=== PATIENT | female | born 1960 | race Caucasian/White ===

== ENCOUNTER 2016-09-12 16:17 | Emergency (ER) | payer OTHER | END 2016-09-12 18:41 | disposition home or self-care (01) | DX: J06.9 Acute upper respiratory infection, unspecified (principal); B97.89 Other viral agents as the cause of diseases classified elsewhere; E11.9 Type 2 diabetes mellitus without complications; Z79.84 Long term (current) use of oral hypoglycemic drugs ==

== ENCOUNTER 2016-10-11 09:29 | Outpatient (CLI) | payer OTHER ==
[2016-10-11] MEDS ORDERED: IOTHALAMATE MEGLUMINE 50 ML VIAL IVP SCH (10:00)
[2016-10-11] MEDS ORDERED: BUFFERED LIDOCAINE 10 ML SYRINGE IU ONE ×2 (14:38→16:00)
[2016-10-11] MEDS ORDERED: methylPREDNISolone ACETATE 40 MG/ML VIAL IM ONE (14:38)
== END 2016-10-11 09:30 | disposition home or self-care (01) ==
DX: M25.511 Pain in right shoulder (principal)
CPT/HCPCS: 20610; 77002; J1030; Q9961

== ENCOUNTER 2016-11-13 08:55 | Outpatient (CLI) | payer OTHER ==
--- NOTE | 2016-11-13 11:16 | MRI Report ---
EXAM: LEFT KNEE MRI WITHOUT CONTRAST EXAM DATE: 11/13/2016 09:00 AM. CLINICAL HISTORY: PAIN IN LEFT KNEE. COMPARISON: None. TECHNIQUE: Multiplanar, multisequence T1-weighted and fluid-sensitive sequences of the knee without c ontrast. Other: None. FINDINGS: Bones: No fractures or subluxations. Tricompartmental osteoarthritis with small osteophytes, mild jux ta-articular reactive marrow edema in the lateral patella and lateral trochlear. No bone lesions. Articular Cartilage: Grade 3-4 cartilaginous degeneration with severe thinning or small area of denud ation in the lateral patella and lateral trochlear associated with joint space narrowing, grade 2 to 3 degeneration in the medial patellofemoral joint. Medial Meniscus: The medial meniscus is intact. Lateral Meniscus: The lateral meniscus is intact. Cruciate Ligaments: The anterior and posterior cruciate ligaments are intact. Collateral Ligaments: Mild grade 1 sprain of the medial collateral ligament with mild surrounding chantal ma. The posterior oblique and the lateral collateral ligaments are intact. Tendons: The quadriceps, patellar, semimembranosus, and popliteus tendons are unremarkable. Musculature: No edema or fatty atrophy. Other: No significant effusion. No popliteal cyst. No loose bodies. The medial and lateral retinacul a, patellofemoral ligaments and iliotibial band are intact. The subcutaneous tissues and fat pads are unremarkable. No bursitis. IMPRESSION: 1. Tricompartmental osteoarthritis with small osteophytes, mild juxta-articular reactive marrow edema in the lateral patella and lateral trochlear. No fracture. 2. Grade 3-4 cartilaginous degeneration with severe thinning or small area of denudation in the later al patella and lateral trochlear associated with joint space narrowing, grade 2 to 3 degeneration in the medial patellofemoral joint. 3. Mild grade 1 sprain of the medial collateral ligament. 4. Menisci are intact. 5. Cruciate ligaments are intact. [facility] MUSCULOSKELETAL RADIOLOGY SECTION Referring Provider Line: [phone] SITE ID: [id number]
== END 2016-11-13 08:56 | disposition home or self-care (01) ==
LOC: DI 08:55
PROVIDERS: ATTEND Physician Assistant
DX: M17.12 Unilateral primary osteoarthritis, left knee (principal); S83.412A Sprain of medial collateral ligament of left knee, initial encounter

== ENCOUNTER 2020-03-10 09:28 | Outpatient (CLI) | payer OTHER ==
--- NOTE | 2020-03-10 14:36 | MRI Report ---
PROCEDURE: Hip RT W/O INDICATIONS: PAIN IN RT HIP TECHNIQUE: Noncontrast coronal T1 spin echo and STIR through the bony pelvis. Coronal and axial T2 fast spin ec ho with fat saturation, sagittal T1 spin echo, and oblique axial T2 fast spin echo with fat saturatio n through the hip. COMPARISON: None. FINDINGS: Image quality: Excellent. Bones and joints: There is no marrow edema. Mild left worse than right bilateral hip joint osteoarthr itic changes are seen with joint space narrowing and subchondral sclerosis. No intraosseous lesions o r fractures. No avascular necrosis of the femoral heads. The visualized lower lumbar spine appears normally aligned. Tendons: The gluteus medius and minimus tendinosis at their insertion on greater trochanter is seen, without associated muscle atrophy. The iliopsoas tendon appears intact, without adjacent bursal flu id collections. The origin of the hamstring tendon is intact at the ischial tuberosity. Labrum and cartilage: The acetabular labrum appears intact in the absence of intra-articular contras t. The alpha angle of the femur is within normal limits at less than 55 degrees. Soft tissues: Visualized muscles demonstrate normal bulk and internal signal. The proximal sciatic neurovascular bundle appears normal adjacent to the hamstring tendons. No free pelvic fluid. Bladde r wall thickness is normal. Genitourinary structures and bowel loops appear normal where visualized. IMPRESSION: 1. Mild left worse than right bilateral hip joint osteoarthritis. No marrow edema. No fracture or dis location. No evidence of avascular necrosis. 2. Mild the left gluteus medius and minimus tendinosis at their insertion on greater trochanter. No o ther muscle or tendon signal abnormality. 3. No gross focal labral tear is seen in the absence of intra-articular contrast. Reviewed by: Gui Arnold MD on 03/10/2020 2:35 PM PDT Approved by: Gui Arnold MD on 03/10/2020 2:35 PM PDT Station ID: [id number]
== END 2020-03-10 09:29 | disposition home or self-care (01) ==
LOC: DI 09:28
PROVIDERS: ATTEND Family Medicine
DX: M16.0 Bilateral primary osteoarthritis of hip (principal)

== ENCOUNTER 2020-03-17 17:10 | Emergency (ER) | payer OTHER ==
[2020-03-17] MEDS ORDERED: TETANUS/DIPHTHERIA/PERTUSSIS 0.5 ML SYRINGE IM ONE (18:34)
--- NOTE | 2020-03-17 18:37 | ED Physician Documentation ---
History of Present Illness - Stated complaint Stated Complaint: CHICKEN SCRATCHED RT SIDE FACE - Chief complaint Chief Complaint: Laceration - History obtained from History obtained from: Patient - Additonal information Additional information: Patient presents to the emergency department stating that she needs to have a tetanus shot after getting scratched by her chicken. Patient states that she was working on the cage when the chicken suddenly became spooked and began flying around the cage. She states the chickens talons had chicken feces on them and that they made contact with her face, causing scratches. Patient states that her main concern is that she is not up-to-date on tetanus and wants to get updated today. No other complaints at this time. No other injuries. Patient states she washed her wounds at home. Review of Systems Ten Systems: 10 systems reviewed and negative Constitutional: reports: Reviewed and negative Eyes: reports: Reviewed and negative Ears: reports: Reviewed and negative Nose: reports: Reviewed and negative Throat: reports: Reviewed and negative Cardiac: reports: Reviewed and negative Respiratory: reports: Reviewed and negative GI: reports: Reviewed and negative : reports: Reviewed and negative Skin: reports: Reviewed and negative Musculoskeletal: reports: Reviewed and negative Neurologic: reports: Reviewed and negative Psychiatric: reports: Reviewed and negative Endocrine: reports: Reviewed and negative Immunocompromised: reports: Reviewed and negative PD PAST MEDICAL HISTORY - Past Medical History Cardiovascular: High cholesterol Respiratory: None Endocrine/Autoimmune: Type 2 diabetes GI: None : None HEENT: None Psych: None Musculoskeletal: Other Derm: None - Past Surgical History General: Appendectomy 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 - Present Medications Home Medications: Ambulatory Orders Medication Instructions Recorded Confirmed Atorvastatin [Lipitor] 10 mg PO DAILY 11/29/14 12/08/14 Butalb/Acetaminophen/Caffeine 1 tab PO PRN 11/29/14 12/08/14 [Fioricet 50-300-40 mg Capsule] Metformin HCl [Metformin HCl ER] 500 mg PO QPM 11/29/14 12/08/14 Rizatriptan Benzoate [Maxalt] 10 mg PO PRN 11/29/14 12/08/14 Topiramate [Topiragen] 100 mg PO BID 11/29/14 12/08/14 methocarbamoL [Robaxin] 500 mg PO Q6H 11/29/14 12/08/14 Albuterol Sulfate [Proventil Hfa 1 - 2 puffs IH Q4H PRN #1 09/12/16 Inhaler] hfa.aer.ad Cetirizine [ZyrTEC] 10 mg PO DAILY 09/12/16 09/12/16 guaiFENesin/CODEINE [Robitussin AC] 5 - 10 ml PO Q6H PRN #120 ml 09/12/16 - Allergies Allergies/Adverse Reactions: Allergies Allergy/AdvReac Type Severity Reaction Status Date / Time Narcotics AdvReac Nausea Uncoded 03/17/20 17:19 Paper Tape AdvReac Hives Uncoded 03/17/20 17:19 Steri-strips AdvReac Hives Uncoded 03/17/20 17:19 - Social History Does the pt smoke?: No Smoking Status: Never smoker Does the pt drink ETOH?: No Does the pt have substance abuse?: No PD ED PE NORMAL - Vitals Vital signs reviewed: Yes - General General: Alert and oriented X 3, No acute distress - HEENT HEENT: PERRL, EOMI, Moist mucous membranes, Other (Mild scratches/linear abrasions on the patient's right cheek. No lacerations.) - Neck Neck: Supple, no meningeal sign - Respiratory Respiratory: No respiratory distress - Derm Derm: Normal color, Warm and dry, No rash, Other (Several scratches are noted on the patient's right cheek. No active bleeding. No associated edema or erythema. Wounds are clean.) - Extremities Extremities: No deformity - Neuro Neuro: Alert and oriented X 3 - Psych Psych: Normal mood, Normal affect Results - Vitals Vitals: Vital Signs - 24 hr 03/17/20 17:15 Temperature 36.1 C L Heart Rate 75 Respiratory 16 Rate Blood Pressure 125/80 O2 Saturation 97 Oxygen O2 Source Room air PD MEDICAL DECISION MAKING - ED course Complexity details: considered differential, d/w patient ED course: Patient's tetanus was updated. She has been given instructions for wound care at home. We have discussed the usual indications for return. Departure - Departure Disposition: 01 Home, Self Care Clinical Impression: Abrasion Condition: Stable Instructions: ED Abrasion
[2020-03-17 18:57] VITALS: BP 115/84
== END 2020-03-17 18:55 | disposition home or self-care (01) ==
LOC: ED 17:10
DX: S00.81XA Abrasion of other part of head, initial encounter (principal); W61.32XA Struck by chicken, initial encounter; Y93.H3 Activity, building and construction; Y92.72 Chicken coop as the place of occurrence of the external cause; E11.9 Type 2 diabetes mellitus without complications; Z79.84 Long term (current) use of oral hypoglycemic drugs
CPT/HCPCS: 90471; 99281; 99282

== ENCOUNTER 2021-02-21 14:36 | Outpatient (CLI) | payer OTHER ==
--- NOTE | 2021-02-22 13:24 | Mammography Report ---
BILATERAL DIGITAL SCREENING MAMMOGRAM 3D/2D: 02/21/2021 CLINICAL: Routine screening. Comparison is made to exams dated: 11/21/2018 mammogram, 11/11/2017 mammogram, and 03/17/2015 mammogram - [facility]. There are scattered fibroglandular elements in both breasts. No significant masses, calcifications, or other findings are seen in either breast. There has been no significant interval change. IMPRESSION: NEGATIVE There is no mammographic evidence of malignancy. A 1 year screening mammogram is recommended. This exam was interpreted at Station ID: [id number]. NOTE: For mammograms, a report in lay terms will be sent to the patient. Approximately 15% of breast malignancies will not be visualized mammographically. In the management of a palpable breast mass, a negative mammogram must not discourage biopsy of a clinically suspicious lesion. Electronically Signed By: Alec Stokes M.D. ar/fordrad:02/21/2021 16:04:18 ACR BI-RADS Category 1: Negative 3341F PARENCHYMAL PATTERN: (A) - The breast(s) demonstrate(s) scattered fibroglandular densities. BI-RADS CATEGORY: (1) - 1 RECOMMENDATION: (ANNUAL) - Recommend routine annual screening mammography. [id number] 1 year screening LATERALITY: (B)
== END 2021-02-21 14:37 | disposition home or self-care (01) ==
LOC: DI 14:36
DX: Z12.31 Encounter for screening mammogram for malignant neoplasm of breast (principal)

== ENCOUNTER 2022-04-01 18:31 | Emergency (ER) | payer OTHER ==
[2022-04-01] MEDS ORDERED: MAG HYDROX/AL HYDROX/SIMETH 30 ML UDC PO STA (18:52)
[2022-04-01] MEDS ORDERED: ASPIRIN CHEW 81 MG TABLET PO STA (18:52)
[2022-04-01] MEDS ORDERED: LIDOCAINE VISCOUS 2% 15 ML UDC MM STA (18:53)
--- NOTE | 2022-04-01 18:57 | ED Physician Documentation ---
PD HPI CHEST PAIN - Stated complaint Stated Complaint: CHEST TIGHTNESS,L ARM PX - Chief complaint Chief Complaint: Cardiac - History obtained from History obtained from: Patient - Additional information Additional information: 61-year-old woman with no history of coronary disease. She did have risk factors including mild type 2 diabetes, family history with her dad developing coronary disease in his 60s, hypertension and hyperlipidemia. She was never smoker. She worked outside this morning and was feeling okay but then at 1330 she developed substernal chest pain radiating to the left shoulder and tightness across the chest with arm numbness on the left. Not short of breath with it. She is never had this before. She tried Tums and milk which were minimally helpful. It waxes and wanes. She walked around but did not change with exertion. 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 - Present Medications Home Medications: Ambulatory Orders Medication Instructions Recorded Confirmed Atorvastatin [Lipitor] 10 mg PO DAILY 11/29/14 12/08/14 Butalb/Acetaminophen/Caffeine 1 tab PO PRN 11/29/14 12/08/14 [Fioricet 50-300-40 mg Capsule] Metformin HCl [Metformin HCl ER] 500 mg PO QPM 11/29/14 12/08/14 Rizatriptan Benzoate [Maxalt] 10 mg PO PRN 11/29/14 12/08/14 Topiramate [Topiragen] 100 mg PO BID 11/29/14 12/08/14 methocarbamoL [Robaxin] 500 mg PO Q6H 11/29/14 12/08/14 Albuterol Sulfate [Proventil Hfa 1 - 2 puffs IH Q4H PRN #1 09/12/16 Inhaler] hfa.aer.ad Cetirizine [ZyrTEC] 10 mg PO DAILY 09/12/16 09/12/16 guaiFENesin/CODEINE [Robitussin AC] 5 - 10 ml PO Q6H PRN #120 ml 09/12/16 - Allergies Allergies/Adverse Reactions: Allergies Allergy/AdvReac Type Severity Reaction Status Date / Time Narcotics AdvReac Nausea Uncoded 04/01/22 18:45 Paper Tape AdvReac Hives Uncoded 04/01/22 18:45 Steri-strips AdvReac Hives Uncoded 04/01/22 18:45 - Social History Does the pt smoke?: No Smoking Status: Never smoker Does the pt drink ETOH?: No Does the pt have substance abuse?: No - Immunizations Immunizations: TDAP >10years/unknown PD ED PE NORMAL - Vitals Vital signs reviewed: Yes - General General: Alert and oriented X 3, No acute distress - HEENT HEENT: PERRL, EOMI - Neck Neck: Supple, no meningeal sign, No bony TTP - Cardiac Cardiac: RRR, No murmur - Respiratory Respiratory: No respiratory distress, Clear bilaterally - Abdomen Abdomen: Normal bowel sounds, Soft, Non tender - Back Back: No CVA TTP, No spinal TTP - Derm Derm: Normal color, Warm and dry - Extremities Extremities: No edema, No calf tenderness / cord - Neuro Neuro: Alert and oriented X 3, Normal speech Results - Vitals Vitals: Vital Signs - 24 hr 04/01/22 04/01/22 04/01/22 18:42 18:45 19:15 Temperature 36.6 C 36.6 C Heart Rate 70 70 72 Respiratory 17 17 18 Rate Blood Pressure 163/100 H 163/100 H 131/82 H O2 Saturation 100 100 95 04/01/22 04/01/22 04/01/22 19:30 20:12 20:34 Temperature Heart Rate 71 98 76 Respiratory 16 23 27 H Rate Blood Pressure 137/97 H 150/98 H 142/93 H O2 Saturation 96 100 100 04/01/22 04/01/22 21:00 21:30 Temperature Heart Rate 70 72 Respiratory 16 15 Rate Blood Pressure 134/86 H 140/90 H O2 Saturation 100 98 Oxygen O2 Source Room air - EKG (time done) 1838 Rate: Rate (enter#) (69) Rhythm: NSR Mobile: Normal QRS: Low voltage Ischemia: Non specific changes (<<1mm anterior SUSAN) 1900 Rate: Rate (enter#) (66) Rhythm: NSR Mobile: Normal Intervals: Normal FL QRS: Normal Ischemia: Non specific changes (<<1mm anterior SUSAN) Compare to prior EKG: Unchanged from prior EKG (No change from the first EKG done about 20 minutes prior.) - Labs Labs: Laboratory Tests 04/01/22 04/01/22 04/01/22 19:07 19:07 19:07 WBC 9.3 RBC 4.49 Hgb 13.5 Hct 40.7 MCV 90.6 MCH 30.1 MCHC 33.2 RDW 12.7 Plt Count 260 MPV 9.4 Neut # (Auto) 5.5 Lymph # (Auto) 2.6 [place] # (Auto) 0.9 Eos # (Auto) 0.3 Baso # (Auto) 0.1 Absolute Nucleated RBC 0.00 Nucleated RBC % 0.0 Sodium 139 Potassium 3.8 Chloride 104 Carbon Dioxide 26 Anion Gap 9.0 BUN 14 Creatinine 0.9 Estimated GFR (MDRD) 64 L Glucose 106 H Calcium 10.6 H Total Bilirubin 0.7 AST 28 ALT 25 Alkaline Phosphatase 45 Troponin I High Sens 1095.7 H* Total Protein 7.5 Albumin 4.5 Globulin 3.0 Albumin/Globulin Ratio 1.5 Lipase 71 H SARS-CoV-2 (PCR) 04/01/22 20:20 WBC RBC Hgb Hct MCV MCH MCHC RDW Plt Count MPV Neut # (Auto) Lymph # (Auto) [place] # (Auto) Eos # (Auto) Baso # (Auto) Absolute Nucleated RBC Nucleated RBC % Sodium Potassium Chloride Carbon Dioxide Anion Gap BUN Creatinine Estimated GFR (MDRD) Glucose Calcium Total Bilirubin AST ALT Alkaline Phosphatase Troponin I High Sens Total Protein Albumin Globulin Albumin/Globulin Ratio Lipase SARS-CoV-2 (PCR) NOT DETECTED PD MEDICAL DECISION MAKING - ED course ED course: 61-year-old woman presents with typical chest pain starting at rest with a really nonischemic EKG. Her troponin came up well over the upper limit of normal confirmatory of non-STEMI. She was treated here with Lovenox, atorvastatin, aspirin, and metoprolol. Spoke with Dr. Damien Arguelles, cardiology at [facility] at approximately 9:35 PM. Defers to the hospitalist for admission. He agrees with withholding clopidogrel for now. Subsequently excepted by Dr. Mccarty, hospitalist at [facility] at 9:59 PM. - Critical Care Time(min): 35 Time Includes: Direct patient care, Review records, Reassess patient, Document care, Coordinate care, Medical consult, Family consult for tx dec Data interpretation: Labs, Pulse ox Procedures excluded from critical care time: EKG Departure - Departure Disposition: 02 Transfer Acute Care Hosp Clinical Impression: NSTEMI (non-ST elevated myocardial infarction) Condition: Serious
[2022-04-01 19:13] LABS: BASOPHILS # (AUTO) 0.1 10^3/uL (0.0-0.1); BASOPHILS % (AUTO) 0.5 %; EOSINOPHILS # (AUTO) 0.3 10^3/uL (0.0-0.7); EOSINOPHILS % (AUTO) 3.1 %; HCT - HEMATOCRIT 40.7 % (37.0-47.0); HGB - HEMOGLOBIN 13.5 g/dL (12.0-16.0); LYMPHOCYTES # (AUTO) 2.6 10^3/uL (1.5-3.5); LYMPHOCYTES % (AUTO) 27.7 %; MEAN CORPUSCULAR HEMOGLOBIN 30.1 pg (27.0-31.0); MEAN CORPUSCULAR HGB CONC 33.2 g/dL (32.0-36.0); MEAN CORPUSCULAR VOLUME 90.6 fL (81.0-99.0); MEAN PLATELET VOLUME 9.4 fL (7.9-10.8); MONOCYTES # (AUTO) 0.9 10^3/uL (0.0-1.0); MONOCYTES % (AUTO) 9.6 %; NEUTROPHILS # (AUTO) 5.5 10^3/uL (1.5-6.6); NEUTROPHILS % (AUTO) 58.9 %; PLT - PLATELET COUNT 260 10^3/uL (130-450); RED BLOOD COUNT 4.49 10^6/uL (4.20-5.40); RED CELL DISTRIBUTION WIDTH 12.7 % (12.0-15.0); WHITE BLOOD COUNT 9.3 x10^3/uL (4.8-10.8)
[2022-04-01 19:27] LABS: ALBUMIN 4.5 g/dL (3.2-5.5); ALBUMIN/GLOBULIN RATIO 1.5 (1.0-2.2); BILIRUBIN,TOTAL 0.7 mg/dL (0.2-1.0); CALCIUM 10.6 mg/dL (8.5-10.3); CREATININE 0.9 mg/dL (0.4-1.0); POTASSIUM 3.8 mmol/L (3.5-5.0); TOTAL PROTEIN 7.5 g/dL (6.7-8.2)
[2022-04-01] MEDS ORDERED: ENOXAPARIN 80 MG/0.8 ML SYRINGE SUBQ STA (20:00)
[2022-04-01] MEDS ORDERED: ATORVASTATIN 40 MG TABLET PO STA (20:00)
[2022-04-01] MEDS ORDERED: METOPROLOL TARTRATE 25 MG TABLET PO STA (20:00)
--- NOTE | 2022-04-01 20:04 | XRAY Report ---
PROCEDURE: Chest 1 View X-Ray INDICATIONS: Chest Pain TECHNIQUE: One view of the chest was acquired. COMPARISON: 09/12/2016 FINDINGS: Surgical changes and devices: Postsurgical changes of the cervical spine. Lungs and pleura: No pleural effusions or pneumothorax. Lungs are clear. Mediastinum: Mediastinal contours appear normal. Heart size is normal. Bones and chest wall: No suspicious bony lesions. Overlying soft tissues appear unremarkable. IMPRESSION: Chest without acute cardiopulmonary abnormalities. No focal consolidation. Reviewed by: Hiram Cody MD on 04/01/2022 8:02 PM PDT Approved by: Hiram Cody MD on 04/01/2022 8:02 PM PDT Station ID: [id number]
[2022-04-01] MEDS ORDERED: ONDANSETRON 4 MG/2 ML VIAL IVP STA (20:07)
[2022-04-01 22:32] VITALS: BP 131/97
== END 2022-04-01 23:03 | disposition short-term general hospital (02) ==
LOC: ED 18:31
DX: I21.4 Non-ST elevation (NSTEMI) myocardial infarction (principal); E11.9 Type 2 diabetes mellitus without complications; Z79.84 Long term (current) use of oral hypoglycemic drugs; Z20.822 Contact with and (suspected) exposure to COVID-19
CPT/HCPCS: 36415; 71045; 80053; 83690; 84484; 85025; 87635; 93005; 96372; 96374; 99285; 99291; A9270; J1650

== ENCOUNTER 2022-04-01 23:05 | Outpatient (CLI) | payer OTHER | END 2022-04-01 23:06 | disposition short-term general hospital (02) | LOC: EMS 23:05 | PROVIDERS: ATTEND Emergency Medicine | DX: I21.4 Non-ST elevation (NSTEMI) myocardial infarction (principal) | CPT/HCPCS: A0425; A0426 ==